=== PATIENT | male | born 1945 | race Caucasian/White ===

== ENCOUNTER 2021-01-25 21:53 | Emergency (ER) | payer MEDICARE, OTHER ==
[~2021-01-25] VITALS: Ht 177.8 cm; Wt 102.1 kg
[2021-01-26] MEDS ORDERED: LORazepam 2MG/ML-1ML VIAL ONE
[2021-01-26] MEDS ORDERED: HALOPERIDOL LACTATE 5 MG/ML INJ VIAL IM ONE ×3 (02:00→21:30)
[2021-01-26] MEDS ORDERED: LORazepam 2MG/ML-1ML VIAL IM ONE ×3 (02:00→23:30)
[2021-01-26 04:33] LABS: Basophils # (auto) 0.1 10 ^3/uL (0-0.2); Basophils % (auto) 0.8 % (0.0-2.0); Eosinophils # (auto) 0.2 10 ^3/uL (0-0.8); Eosinophils % (auto) 1.6 % (0.0-7.0); Hematocrit 45.1 % (41.0-53.0); Hemoglobin 15.1 g/dL (13.5-17.5); Lymphocytes # (auto) 1.7 10 ^3/uL (0.4-5.4); Lymphocytes % (auto) 11.3 % (10.0-50.0); Mean Corpuscular Hemoglobin 30.1 pg (28.0-32.0); Mean Corpuscular Hgb Conc. 33.4 g/dL (32.0-36.0); Mean Corpuscular Volume 89.9 fL (80.0-100.0); Monocytes # (auto) 1.4 10 ^3/uL (0-1.3); Monocytes % (auto) 9.2 % (0.0-12.0); Neutrophils # (auto) 11.8 10 ^3/uL (1.6-8.6); Neutrophils % (auto) 77.1 % (37.0-80.0); Red Blood Cells 5.01 10^6/uL (4.5-5.90); Red Cell Distribution Width 14.4 % (11.8-14.3); White Blood Cell 15.3 10^3/uL (4.4-10.8)
[2021-01-26 04:40] LABS: Albumin 2.6 g/dL (3.4-5.0); Calcium 9.1 mg/dL (8.5-10.1); Potassium 3.9 mmol/L (3.5-5.1)
[2021-01-26 04:42] LABS: BUN/Creatinine Ratio 23.1
[2021-01-26 04:46] LABS: Acetaminophen < 2.0 ug/mL (10-30); Bilirubin, Total 0.6 mg/dL (0.2-1.0); Salicylate < 1.7 mg/dL (2.8-20.0); Total Protein 7.1 g/dL (6.4-8.2)
[2021-01-26 05:05] LABS: INR 1.13 (0.9-1.15); Partial Thromboplastin Time 31.3 sec (23.6-33.0)
[2021-01-26] MEDS ORDERED: diphenhdrAMINE HCL 50 MG/1 ML VL IM ONE (22:00)
[2021-01-27] MEDS ORDERED: LORazepam 2MG/ML-1ML VIAL IM ONE (00:30)
[2021-01-27] MEDS ORDERED: diphenhdrAMINE HCL 50 MG/1 ML VL IM ONE (00:30)
[2021-01-27] MEDS ORDERED: HALOPERIDOL LACTATE 5 MG/ML INJ VIAL IM ONE (00:30)
[2021-01-28 18:39] VITALS: BP 145/79
== END 2021-01-28 23:26 | disposition still patient (30) ==
LOC: EDUNIT# 21:53 → EDBD 21:53 → ER 21:53
DX: R45.1 Restlessness and agitation (principal); I50.9 Heart failure, unspecified; I25.10 Atherosclerotic heart disease of native coronary artery without angina pectoris; J44.9 Chronic obstructive pulmonary disease, unspecified; E11.9 Type 2 diabetes mellitus without complications; K21.9 Gastro-esophageal reflux disease without esophagitis; E78.5 Hyperlipidemia, unspecified; Z95.1 Presence of aortocoronary bypass graft; Z20.822 Contact with and (suspected) exposure to COVID-19
CPT/HCPCS: 36415; 80053; 80320; 80329; 84484; 85025; 85610; 85730; 87426; 93005; 96372; 99285; C9803; J1200; J1630; J2060; U0003